=== PATIENT | female | born 1950 | race Caucasian/White ===

== ENCOUNTER 2016-09-14 12:31 | Emergency (ER) | payer MEDICARE ==
[2016-09-14 13:21] VITALS: BP 180/87
--- NOTE | 2016-09-14 13:22 | Emergency Department Report ---
Chief Complaint: Skin Rash Stated Complaint: RASH Time Seen by Provider: 09/14/16 13:18 - HPI History of Present Illness: PT states she woke up with a rash to bue. PT states the rash feels warm. PT denies new exposures. - ROS Review of Systems: - headache + rash - Exam Physical Exam: erythematous rash to bue noted MSE screening note: Focused history and physical exam performed. Due to findings the following was ordered: recheck bp ED Disposition for MSE Condition: Stable
--- NOTE | 2016-09-14 14:43 | Emergency Department Report ---
HPI - General Chief Complaint: Skin Rash Time Seen by Provider: 09/14/16 13:18 - HPI HPI: Patient is a 66-year-old female presents to ED complaining of waking up this morning noticing the itching red rash on her arms. She states she does not recall, and to contact if anything more recall eating anything out of the ordinary. She states rashes rash itches intermittently. She denies fever chills nausea vomiting abdominal pain or any other symptoms ED Past Medical Hx - Past Medical History Previous Medical History?: No - Surgical History Past Surgical History?: Yes Hx Cholecystectomy: Yes - Social History Smoking Status: Never Smoker Substance Use Type: None - Medications Home Medications: Home Medications Medication Instructions Recorded Confirmed Last Taken Type Triamcinolone 0.1% [Kenalog 0.1% 1 applic TP TID #2 tube 09/14/16 Unknown Rx CREAM] diphenhydrAMINE [Benadryl CAP] 25 mg PO QHS #20 capsule 09/14/16 Unknown Rx predniSONE [Deltasone] 20 mg PO DAILY #3 tablet 09/14/16 Unknown Rx ED Review of Systems ROS: Stated complaint: RASH Other details as noted in HPI Constitutional: denies: chills, fever Eyes: denies: eye pain, eye discharge, vision change ENT: denies: ear pain, throat pain Respiratory: denies: cough, shortness of breath, wheezing Cardiovascular: denies: chest pain, palpitations Endocrine: no symptoms reported Gastrointestinal: denies: abdominal pain, nausea, diarrhea Genitourinary: denies: urgency, dysuria, frequency, hematuria, discharge Musculoskeletal: denies: back pain, joint swelling, arthralgia, myalgia Skin: pruritus. denies: rash, lesions Neurological: denies: headache, weakness, numbness, paresthesias, abnormal gait Psychiatric: denies: anxiety, depression Hematological/Lymphatic: denies: easy bleeding, easy bruising Physical Exam - Physical Exam Vital Signs: Vital Signs 09/14/16 13:20 Temperature 98.6 F Pulse Rate 83 Respiratory 16 Rate Blood Pressure 180/87 O2 Sat by Pulse 98 Oximetry Physical Exam: GENERAL: Alert and oriented x3, no apparent distress, Normal Gait, atraumatic. HEAD: Head is normocephalic and a-traumatic. MOUTH:Mouth is well hydrated and without lesions. Tonsils nonerythematous or swollen, Uvula midline, Tongue not elevated. Mucous membranes are moist. Posterior pharynx clear, no exudate or lesions. Patent airways. LUNGS: Symetrical with respiration, No wheezing, no rales or crackles, CTAB. HEART: S1, S2 present, regular rate and rhythm without murmur, no rubs, no gallops. Non tender to palpation EXTREMITIES/MUSCULOSKELETAL: No cyanosis, clubbing, rash, lesions or edema. Full ROM bilaterally. UE/LE Pulses 2+ bilaterally. NEUROLOGIC: The patient is cooperative with no focal neurologic deficits. Cranial nerves II through XII are grossly intact. Normal speech. PSYCHIATRIC: Mood is congruent with affect, denies suicidal or homicidal ideations. SKIN: Warm and dry, generalized, raised, erythematous macules on bilateral arms consistent with hives No lesions, No ulceration or induration present. ED Course Vital Signs 09/14/16 13:20 Temperature 98.6 F Pulse Rate 83 Respiratory 16 Rate Blood Pressure 180/87 O2 Sat by Pulse 98 Oximetry ED Medical Decision Making - Medical Decision Making 66-year-old female presents with contact dermatitis ED course: Patient received Motrin and prednisone in ED Discussed patient to avoid all contact. Discussed with patient to use prescriptions medication as prescribed. Discussed the patient to follow up with primary care physician. Discussed for the symptoms return to ED. Critical care attestation.: If time is entered above; I have spent that time in minutes in the direct care of this critically ill patient, excluding procedure time. ED Disposition Clinical Impression: Contact dermatitis Qualifiers: Contact dermatitis type: allergic Contact dermatitis trigger: other trigger Qualified Code(s): L23.89 - Allergic contact dermatitis due to other agents; L23.8 - Allergic contact dermatitis due to other agents Disposition: DC-01 TO HOME OR SELFCARE Is pt being admited?: No Does the pt Need Aspirin: No Condition: Stable Instructions: Contact Dermatitis (ED), Urticaria (ED) Prescriptions: diphenhydrAMINE [Benadryl CAP] 25 mg PO QHS #20 capsule predniSONE [Deltasone] 20 mg PO DAILY #3 tablet Triamcinolone 0.1% [Kenalog 0.1% CREAM] 1 applic TP TID #2 tube Referrals: PRIMARY CARE, [Primary Care Provider] - 3-5 Days Forms: Accompanied Note, Work/School Release Form(ED) Time of Disposition: 15:09
[2016-09-14] MEDS ORDERED: DELTASONE PO ONE (14:44)
[2016-09-14] MEDS ORDERED: BENADRYL PO ONE (14:51)
== END 2016-09-14 15:23 | disposition home or self-care (01) ==
LOC: ED 12:31
DX: L23.89 Allergic contact dermatitis due to other agents (principal)
CPT/HCPCS: 99282; J7512

== ENCOUNTER 2016-09-16 16:39 | Emergency (ER) | payer MEDICARE ==
[2016-09-16] MEDS ORDERED: NACL 0.9% 1000 ML 1,000 ML IV ONE (19:00)
[2016-09-16] MEDS ORDERED: PEPCID IV ONE (19:00)
[2016-09-16] MEDS ORDERED: BENADRYL IV ONE (19:00)
--- NOTE | 2016-09-16 19:02 | Emergency Department Report ---
ED General Adult HPI - General Chief complaint: Allergic Reaction Stated complaint: ALLERGIC REACTION TO MEDS Time Seen by Provider: 09/16/16 18:53 Source: patient Mode of arrival: Ambulatory Limitations: No Limitations - History of Present Illness Initial comments: PT states she started having a rash on Wednesday. PT states she does not know what triggered the rash. PT denies that close contacts have rash. PT states the rash is itchy and uncomfortable. PT states she was seen in the ED on Wednesday and given RX medications but today the rash is worse. MD Complaint: rash -: Gradual, days(s) Location: face, neck, chest, back, abdomen, left, right, upper extremity, lower extremity Severity scale (0 -10): 0 Quality: constant, other (itch) Consistency: constant Improves with: none Worsens with: medication Associated Symptoms: fever/chills, rash. denies: chest pain, loss of appetite, malaise, nausea/vomiting, seizure, shortness of breath, syncope, weakness - Related Data Previous Rx's Medication Instructions Recorded Last Taken Type Triamcinolone 0.1% [Kenalog 0.1% 1 applic TP TID #2 tube 09/14/16 Unknown Rx CREAM] Famotidine [Pepcid] 20 mg PO BID #14 tablet 09/16/16 Unknown Rx hydrOXYzine PAMOATE [Vistaril] 25 mg PO Q6HR PRN #12 capsule 09/16/16 Unknown Rx methylPREDNISolone [Medrol] 4 mg PO DAILY #1 tab.ds.pk 09/16/16 Unknown Rx Allergies Allergy/AdvReac Type Severity Reaction Status Date / Time No Known Allergies Allergy Verified 09/16/16 16:52 ED Review of Systems ROS: Stated complaint: ALLERGIC REACTION TO MEDS Other details as noted in HPI Comment: All other systems reviewed and negative Constitutional: chills. denies: fever, malaise ENT: denies: throat pain, congestion Respiratory: denies: cough, shortness of breath, SOB with exertion, SOB at rest Cardiovascular: denies: chest pain Gastrointestinal: denies: abdominal pain, nausea, vomiting Skin: rash, change in color (erythematous ) ED Past Medical Hx - Past Medical History Previous Medical History?: No - Surgical History Hx Cholecystectomy: Yes - Social History Smoking Status: Never Smoker Substance Use Type: None - Medications Home Medications: Home Medications Medication Instructions Recorded Confirmed Last Taken Type Triamcinolone 0.1% [Kenalog 0.1% 1 applic TP TID #2 tube 09/14/16 Unknown Rx CREAM] Famotidine [Pepcid] 20 mg PO BID #14 tablet 09/16/16 Unknown Rx hydrOXYzine PAMOATE [Vistaril] 25 mg PO Q6HR PRN #12 capsule 09/16/16 Unknown Rx methylPREDNISolone [Medrol] 4 mg PO DAILY #1 tab.ds.pk 09/16/16 Unknown Rx ED Physical Exam - General Limitations: No Limitations General appearance: alert, in no apparent distress - Head Head exam: Present: atraumatic, normocephalic, normal inspection - Eye Eye exam: Present: normal appearance, PERRL, EOMI. Absent: conjunctival injection - ENT ENT exam: Present: normal exam, mucous membranes moist, normal external ear exam - Neck Neck exam: Present: full ROM. Absent: normal inspection (urticaria noted to neck ), tenderness - Respiratory Respiratory exam: Present: normal lung sounds bilaterally. Absent: respiratory distress, wheezes, rales, rhonchi, chest wall tenderness, accessory muscle use, decreased breath sounds - Cardiovascular Cardiovascular Exam: Present: regular rate, normal rhythm, normal heart sounds. Absent: bradycardia - GI/Abdominal GI/Abdominal exam: Present: soft. Absent: tenderness - Extremities Exam Extremities exam: Present: full ROM, normal capillary refill. Absent: tenderness, pedal edema, joint swelling, calf tenderness - Back Exam Back exam: Present: full ROM. Absent: tenderness, CVA tenderness (R), CVA tenderness (L), muscle spasm, paraspinal tenderness, vertebral tenderness - Neurological Exam Neurological exam: Present: alert, oriented X3, normal gait - Psychiatric Psychiatric exam: Present: normal affect, normal mood - Skin Skin exam: Present: warm, dry, intact, rash, erythema. Absent: normal color - Expanded Skin Exam Expanded Type of lesion: Present: rash Distribution of rash: generalized Description of rash: Present: erythematous, urticarial ED Course Vital Signs 09/16/16 09/16/16 16:45 21:20 Temperature 98.7 F 98.5 F Pulse Rate 95 H 75 Respiratory 18 20 Rate Blood Pressure 159/90 Blood Pressure 160/97 [Right] O2 Sat by Pulse 100 99 Oximetry - Reevaluation(s) Reevaluation #1: 08/09/17 19:02 PT aware of plan of care. Reevaluation #2: 09/16/16 21:07 PT received IV pepcid, benadrly, and solu-medrol. PT states she is feeling much better. PT given strict return precautions. - Pulse Oximetry Interpretation Digit-Finger Initial Pulse Oximetry Readin Actions Taken: none ED Medical Decision Making - Differential Diagnosis rash, urticaria Critical Care Time: No Critical care attestation.: If time is entered above; I have spent that time in minutes in the direct care of this critically ill patient, excluding procedure time. ED Disposition Clinical Impression: Urticaria Disposition: TO HOME OR SELFCARE Is pt being admited?: No Does the pt Need Aspirin: No Condition: Stable Instructions: Urticaria (ED) Additional Instructions: No driving or alcohol after taking Vistaril Follow up with PCP in 3-5 days - recheck bp at follow up You may need outpatient allergy testing , your PCP can arrange this Only use hypoallergenic soaps, detergents and skin products return to the ED if worsening rash, you are having trouble breathing or concerns Prescriptions: Famotidine [Pepcid] 20 mg PO BID #14 tablet hydrOXYzine PAMOATE [Vistaril] 25 mg PO Q6HR PRN #12 capsule PRN Reason: Itching methylPREDNISolone [Medrol] 4 mg PO DAILY #1 tab.ds.pk Referrals: PRIMARY CARE, [Primary Care Provider] - 3-5 Days ADELINA MCINTYRE MD, PHD [Staff Physician] - 3-5 Days [facility] [Outside] - 3-5 Days Time of Disposition: 21:14
[2016-09-16 21:45] VITALS: BP 160/97
== END 2016-09-16 21:20 | disposition home or self-care (01) ==
LOC: ED 16:39
DX: L50.9 Urticaria, unspecified (principal)
CPT/HCPCS: 96361; 96374; 96375; 99282; J1200; J2930; J7030